=== PATIENT | female | born 1945 | race Hispanic/Latino ===

== ENCOUNTER → 2017-11-04 | Outpatient (CLI) | payer MEDICARE ==
[~2017-11-04] MED LIST: SODIUM CHLORIDE 0.9% 250ML 250 ML ONE
[2017-11-04 13:37] LABS: BLOOD UREA NITROGEN 10 mg/dL (7-26); BUN/CREATININE RATIO 15 (6-25); CREATININE, SERUM 0.66 mg/dL (0.57-1.11); EST GLOMERULAR FILTRATION RATE > 60 ML/MIN (60-)
--- NOTE | 2017-11-04 15:16 | Diagnostic Imaging Report ---
EXAM: CT Abdomen and Pelvis WITHOUT and WITH contrast INDICATION: \[id number] \[id number] \S\ASYMPTOMATIC MICROSCOPIC HEMATURIA COMPARISON: None. TECHNIQUE: Abdomen and pelvis were scanned utilizing a multidetector helical scanner from the lung base to the pubic symphysis before and after administration of IV contrast. Coronal and sagittal reformations were obtained. Hematuria (CT Urogram) protocol was performed. Scan was performed pre- in supine position and nephrogenic/excretory phase with a 10 minute split bolus in prone position. IV CONTRAST: 150 mL of Omnipaque 350 ORAL CONTRAST: Water COMPLICATIONS: None RADIATION DOSE: Total DLP: 1506.71 mGy*cm Estimated effective dose: (DLP x 0.015 x size factor) mSv CTDIvol has been reviewed. It is below the limits set by the Radiation Protocol Committee (RPC). FINDINGS: LINES and TUBES: None. LOWER THORAX: Dependent atelectasis. 5 mm posterior right base nodule (series 3, image 86). Elevated right hemidiaphragm. HEPATOBILIARY: No biliary ductal dilation. GALLBLADDER: Peripherally calcified gallstone in gallbladder neck. Gallbladder is distended. No wall thickening or pericholecystic fluid. SPLEEN: No splenomegaly. Nonspecific tiny hypodensity, could be a cyst (series 6, image 66). PANCREAS: No focal masses or ductal dilatation. ADRENALS: No adrenal nodules KIDNEYS/URETERS: Kidneys: Normal appearance bilaterally. No hydronephrosis or perinephric stranding. Cyst: None. Tiny left inferior pole hypodensities are too small to characterize. Mass: None. Stones: None. Upper collecting systems: No irregularities or filling defects. Ureters: Fully opacified and normal in appearance. Bladder: No mass or filling defects. GI TRACT: No abnormal distention, wall thickening, or evidence of bowel obstruction. There are diverticula within the colon without evidence of diverticulitis. Appendix is normal. PELVIC ORGANS/BLADDER: Hysterectomy. LYMPH NODES: No lymphadenopathy. VESSELS: Unremarkable. PERITONEUM / RETROPERITONEUM: No free air or fluid. BONES: T9 vertebral body hemangioma. Degenerative changes of spine. Lower lumbar spine facet arthropathy with grade 1 retrolisthesis of L5 on L4. SOFT TISSUES: Unremarkable. IMPRESSION: 1. No nephrolithiasis or evidence of obstructive urolithiasis. 2. No filling defects within ureters/collecting system. 3. Colonic diverticulosis without evidence of diverticulitis. 4. Distended gallbladder with a gallstone in gallbladder neck. No pericholecystic fluid or wall thickening. 5. 5 mm posterior right base lung nodule. Without risk factors, no follow-up is necessary. With risk factors, follow-up with low-dose chest CT in one year is recommended. Signed by: Dr. Ajith Dickinson MD on 11/04/2017 3:13 PM
== END ==
LOC: CT 12:42
PROVIDERS: ATTEND Urology
DX: R31.21 Asymptomatic microscopic hematuria (principal)
CPT/HCPCS: 36415; 74178; 82565; 84520; J7050